=== PATIENT | female | born 1980 | race African-American/Black ===

== ENCOUNTER 2016-12-18 10:33 | Emergency (ER) | payer SELFPAY ==
[2016-12-18 11:02] VITALS: BP 151/99
[2016-12-18] MEDS ORDERED: Ibuprofen TAB* 200 MG PO ONE (12:13)
--- NOTE | 2016-12-18 12:21 | UC ---
Angelita Trejo Salem, scribed for Valeria Lincoln MD on 12/18/16 at 1211 . Shoulder Pain HPI - HPI Summary HPI Summary: Patient is a 36 y/o female who presents to the with right shoulder pain since 4 days ago. She states that she has an old injury from work that has worsened because of her work schedule / duties. 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 She began working 4 hours a day, but it has increased to 8 hours with 15 minute breaks. Pt states she has tightness along right trapezius. Pt get occasional paresthesia along right arm. Pt states these sx are same as she has previous had - pt states sx had improved with physical therapy, but is getting bad again. She denies taking medication previous prescribed because she gets sleepy with medication, but reports taking 200mg Ibuprofen 4-5 times, most recent one at 0200. She states that she has an appointment with her PCP 2 days from now. Pain is now localized in her right neck and the right side of her back. She is here with her mother and her niece, and pt is a mother herself. Pt is RHD. Pt is tearful because thought was ready to go back to work but is now in pain. Patients medication reviewed this visit. - History of Current Complaint Chief Complaint: UCUpperExtremity Stated Complaint: RT SHOLDER/NECK INJURY Time Seen by Provider: 12/18/16 11:20 Hx Obtained From: Patient, Family/Legal Librarian - Mother and niece. Hx Last Menstrual Period: 12/16/16 Onset/Duration: Gradual Onset, Lasting Days, Still Present Timing: Constant Severity Initially: Moderate Severity Currently: Moderate Location Of Pain: Radiates To - Right neck and right side of back. Aggravating Factor(s): Movement Alleviating Factor(s): Rest Associated Signs And Symptoms: Positive: Numbness/Tingling - in right neck/ shoulder area. - Allergies/Home Medications Allergies/Adverse Reactions: Allergies Allergy/AdvReac Type Severity Reaction Status Date / Time POWDER IN GLOVES Allergy Rash Uncoded 10/03/15 11:23 Home Medications: Home Medications Ibuprofen [Advil] 800 mg 12/18/16 [History] PMH/Surg Hx/FS Hx/Imm Hx Previously Healthy: Yes Endocrine History Of: Denies: Diabetes, Thyroid Disease Cardiovascular History Of: Denies: Cardiac Disorders, Hypertension, Pacemaker/ICD, Congestive Heart Failure Respiratory History Of: Denies: COPD, Asthma GI/ History Of: Denies: Ulcer - Surgical History Surgical History: Yes Surgery Procedure, Year, and Place: c-sections x2 - Family History Known Family History: Positive: Other - Arthritis - mother. - Social History Occupation: Employed Part-time Lives: With Family Alcohol Use: Rare Substance Use Type: None Smoking Status (MU): Never Smoked Tobacco Have You Smoked in the Last Year: No Review of Systems Constitutional: Negative Skin: Negative Eyes: Negative ENT: Negative Respiratory: Negative Cardiovascular: Negative Gastrointestinal: Negative Genitourinary: Negative Motor: Negative Neurovascular: Other - paresthesia right UE Musculoskeletal: Other: - right shoulder, neck pain Neurological: Numbness - in right neck/shoulder area. Psychological: Negative All Other Systems Reviewed And Are Negative: Yes Physical Exam Triage Information Reviewed: Yes Appearance: Well-Appearing, No Pain Distress, Well-Nourished Vital Signs: Initial Vital Signs Temp 98.7 F 12/18/16 10:53 Pulse 73 12/18/16 10:53 Resp 18 12/18/16 10:53 BP 151/99 12/18/16 10:53 Pulse Ox 100 12/18/16 10:53 Vital Signs Reviewed: Yes Eyes: Positive: Conjunctiva Clear ENT: Positive: Normal ENT inspection, Hearing grossly normal, Pharynx normal, TMs normal Neck exam: Normal Neck: Positive: No Lymphadenopathy, Tenderness @ - Tender right paracervical, right trapezius. Respiratory: Positive: Chest non-tender, Lungs clear Cardiovascular: Positive: RRR, No Murmur Musculoskeletal: Positive: Other: - Pt holding arm to body to splint right trapezius + TTP right paraspinal along trapezius to posterior shoulder - palpable spasm + flex/ext elbow, wrist 5/5 grasp + pronate/supinate Neurological Exam: Normal Neurological: Positive: Alert, Muscle Tone Normal, Other: - gross sensation throughout trapzius, UE 5/5 grasp, thumb up, finger cross, finger spread Psychological Exam: Normal Skin Exam: Normal Shoulder Course/Dx - Course Course Of Treatment: Blood pressure noted and patient advised to follow up with PCP 7-10 days. Pt with right trapezius spasm and pain - h/o similar. Exacerbated by work. Arm sling for rest and support. heat. stretch. motrin/ apap. flexeril. work note. PCP f/u 48 hours. reassurance - Differential Dx/Diagnosis Provider Diagnoses: muscle spasm Discharge - Discharge Plan Condition: Stable Disposition: HOME Prescriptions: Cyclobenzaprine TAB* [Flexeril 10 MG TAB*] 5 mg PO TID PRN #15 tab PRN Reason: Spasms Ibuprofen TAB* [Motrin TAB* 600 MG] 600 mg PO Q6H PRN #30 tab PRN Reason: Pain Patient Education Materials: Spasmodic Torticollis (ED), Muscle Spasm (ED) Forms: *Work Release Referrals: Tita Foy MD [Primary Care Provider] - Additional Instructions: - wear sling for comfort and support. It is VERY important you allow your arm to relax and let the sling hold the weight of your arm - Apply moist heat to your neck and shoulder area - 20 minutes a time - Once your muscles are warm, slow, gentle stretching exercises are important - Okay to alternate ibuprofen (motrin, advil) 600mg and tylenol 2 tablet every 3 hours for pain. Take with food. - Use muscle relaxant as prescribed. Do NOT drive, operate machinery or drink alcohol while taking flexeril - Keep you appointment as scheduled with your primary doctor this week. call your doctor with questions or concerns The documentation as recorded by the Angelita serna Salem accurately reflects the service I personally performed and the decisions made by me, Valeria Lincoln MD.
[2016-12-18] MEDS ORDERED: Ibuprofen TAB* 200 MG ONE (12:52)
== END 2016-12-18 12:58 | disposition home or self-care (01) ==
LOC: UCEAST 10:33
DX: M62.838 Other muscle spasm (principal)
CPT/HCPCS: 99212; A9270-GY; G0463

== ENCOUNTER 2018-03-15 09:11 | Emergency (ER) | payer OTHER ==
[2018-03-15 09:42] VITALS: BP 118/85
[2018-03-15] MEDS ORDERED: Ketorolac INJ* 60 MG/2 ML VIAL IM ONE (10:02)
--- NOTE | 2018-03-15 10:05 | UC ---
General HPI - HPI Summary HPI Summary: Risa Trejo, scribed for attending Stefan Barrera MD. Pt is a 37 y/o F who presents to [facility] c/o right tricep pain and spasm. Pt reports that for the last 3 days, her right tricep muscle becomes so hard it stiffens and hurts which is "stronger" than her typical muscle spasms. Pain radiates to the right side of the neck and down to the left lumbar back. Has tried taking Tylenol and Motrin which did not change symptoms. Associated pain is moderate, ranked 6/10 on triage. Additionally c/o increased urinary frequency and urgency for 4 days, unchanged by increased fluid intake and cranberry juice. Denies dysuria, hematuria, urine malodor and abdominal pain. PMHx nerve damage for over 4 years, for which she had a nerve conduction study in the past. 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 She has been experiencing right-sided numbness, pain, and intermittent muscle spasms for many years s/p clavicle fracture, though her current symptoms are acute and worse than baseline. Does not take any daily medications for nerve damage or muscle spasms. Right hand dominant. - History of Current Complaint Chief Complaint: UCUpperExtremity Stated Complaint: UPPER ARM/BACK PAIN Time Seen by Provider: 03/15/18 09:26 Hx Obtained From: Patient Hx Last Menstrual Period: 3 weeks ago Onset/Duration: Lasting Days - 3 days, Still Present Current Severity: Moderate Pain Intensity: 6 Pain Location at: Right tricep Pain Radiates to: Right side of neck and left lumbar back Character: Ache, spasm Aggravating: Nothing Alleviating: Nothing Associated Signs & Symptoms: Positive: Other - Muscle spasms - Allergy/Home Medications Allergies/Adverse Reactions: Allergies Allergy/AdvReac Type Severity Reaction Status Date / Time POWDER IN GLOVES Allergy Rash Uncoded 10/03/15 11:23 PMH/Surg Hx/FS Hx/Imm Hx - Additional Past Medical History Additional PMH: PMHx: Nerve damage Negative PMHx: HTN, DM, Asthma - Surgical History Surgical History: Yes Surgery Procedure, Year, and Place: c-sections x2 - Family History Known Family History: Positive: Other - Arthritis - mother. - Social History Alcohol Use: Rare Substance Use Type: None Smoking Status (MU): Never Smoked Tobacco Have You Smoked in the Last Year: No Review of Systems Constitutional: Negative Skin: Negative Eyes: Negative ENT: Negative Respiratory: Negative Cardiovascular: Negative Gastrointestinal: Negative Genitourinary: Frequency, Urgency Motor: Negative Neurovascular: Negative Musculoskeletal: Other: - Right tricep pain and spasm with radiation to right neck and left lumbar back Neurological: Negative Psychological: Negative All Other Systems Reviewed And Are Negative: Yes - Comments Additional Review of Systems Comments: NEGATIVE: Dysuria, hematuria, urine malodor and abdominal pain Physical Exam - Summary Physical Exam Summary: Appearance: Well-appearing, Well-nourished Skin: Warm Eyes: Normal ENT: Normal Neck: Supple, nontender Respiratory: Clear to auscultation Cardiovascular: Regular rate, regular rhythm. Normal S1, S2. Abdomen: Soft, nontender Musculoskeletal: Tenderness to palpation on the right middle head of the triceps that radiates to the right trapezius/upper shoulder and across to the left lumbar paraspinal muscle Neurological: Normal, A&Ox3 Psychiatric: Normal General: No acute distress Triage Information Reviewed: Yes Vital Signs: Initial Vital Signs Temp 98.6 F 03/15/18 09:31 Pulse 69 03/15/18 09:31 Resp 16 03/15/18 09:31 BP 118/85 03/15/18 09:31 Pulse Ox 100 03/15/18 09:31 Vital Signs Reviewed: Yes Course/Dx - Differential Dx - Multi-Symptom Provider Diagnoses: Right upper arm spasm, acute cystitis Discharge - Sign-Out/Discharge Documenting (check all that apply): Patient Departure - Discharge - Discharge Plan Condition: Stable Disposition: HOME Prescriptions: Nitrofurantoin Monohyd/M-Cryst [Macrobid 100 mg Capsule] 100 mg PO BID 7 Days # 14 cap Patient Education Materials: Urinary Tract Infection in Women (ED), Muscle Spasm (ED) Referrals: Tita Foy MD [Primary Care Provider] - - Billing Disposition and Condition Condition: STABLE Disposition: Home
--- NOTE | 2018-03-16 15:39 | UC ---
- Progress Note Progress Note: may stop antibiotic--no evidence of UTI urine culture is negative---follow with pcp, urgent care or ed if sx continue Discharge - Sign-Out/Discharge Documenting (check all that apply): Post-Discharge Follow Up - Discharge Plan Condition: Stable Disposition: HOME Prescriptions: Nitrofurantoin Monohyd/M-Cryst [Macrobid 100 mg Capsule] 100 mg PO BID 7 Days # 14 cap Patient Education Materials: Urinary Tract Infection in Women (ED), Muscle Spasm (ED) Referrals: Tita Foy MD [Primary Care Provider] - - Billing Disposition and Condition Condition: STABLE Disposition: Home
== END 2018-03-15 10:25 | disposition home or self-care (01) ==
LOC: UCEAST 09:11
DX: M62.838 Other muscle spasm (principal); N30.00 Acute cystitis without hematuria
CPT/HCPCS: 81003; 87086; 96372; 99212; G0463; J1885

== ENCOUNTER 2019-08-28 13:12 | Emergency (ER) | payer OTHER ==
[2019-08-28 13:44] VITALS: BP 103/64
--- NOTE | 2019-08-28 14:41 | UC ---
Dental HPI - HPI Summary HPI Summary: 38 yo female presents with two complaints: 1) She has upper teeth dentures and from time to time she will cut the inside of her gums and get infections. About 3 days ago she cut the left upper gums and since that time has had pain and swelling to the area and her left cheek. Has been taking ibuprofen for pain with good relief. 2) Right foot lump. Over the last 2-3 weeks she has noticed a small firm protruding bump at the top of her right foot. Has been tender. Yesterday area became soft and doesn't hurt anymore. Denies injury. - History of Current Complaint Chief Complaint: UCDentalProblem Stated Complaint: DENTAL,FOOT PAIN Time Seen by Provider: 08/28/19 14:41 Hx Obtained From: Patient Hx Last Menstrual Period: 3 weeks ago Onset/Duration: Gradual Onset Severity: Severe Pain Intensity: 10 Pain Scale Used: 0-10 Numeric - Allergies/Home Medications Allergies/Adverse Reactions: Allergies Allergy/AdvReac Type Severity Reaction Status Date / Time POWDER IN GLOVES Allergy Rash Uncoded 08/28/19 13:44 Home Medications: Home Medications Naproxen [Naproxen 500 mg tab] 500 mg PO 08/28/19 [History] PMH/Surg Hx/FS Hx/Imm Hx - Additional Past Medical History Additional PMH: Neuropathy - Surgical History Surgical History: Yes Surgery Procedure, Year, and Place: c-sections x2 - Family History Known Family History: Positive: Other - Arthritis - mother. - Social History Lives: With Family Alcohol Use: Rare Substance Use Type: None Smoking Status (MU): Never Smoked Tobacco Have You Smoked in the Last Year: No Review of Systems All Other Systems Reviewed And Are Negative: No Constitutional: Positive: Negative Skin: Positive: Negative Eyes: Positive: Negative ENT: Positive: Dental Pain Respiratory: Positive: Negative Cardiovascular: Positive: Negative Neurovascular: Positive: Negative Musculoskeletal: Positive: Other: - Right foot cyst Neurological: Positive: Negative Psychological: Positive: Negative Physical Exam - Summary Physical Exam Summary: GENERAL: NAD. WDWN. SKIN: No rashes, sores, lesions, or open wounds. HEENT: Head: AT/NC Nose: Nasal mucosa pink and moist. NTTP maxillary and frontal sinus. Throat: Posterior oropharynx without exudates, erythema, or tonsillar enlargement. Uvula midline. NECK: Supple. Nontender. No lymphadenopathy. CHEST: CTAB. No accessory muscle use. Breathing comfortably and in no distress. CV: RRR. Pulses intact. Cap refill <2seconds MSK: RIGHT FOOT: Dorsal foot at navicular with 7mm cyst. NTTP. No erythema or induration. NEURO: Alert. PSYCH: Age appropriate behavior. Triage Information Reviewed: Yes Vital Signs: Initial Vital Signs Temp 99.3 F 08/28/19 13:35 Pulse 84 08/28/19 13:35 Resp 18 08/28/19 13:35 BP 103/64 08/28/19 13:35 Pulse Ox 100 08/28/19 13:35 Vital Signs Reviewed: Yes Dental: Positive: Percussion Tenderness @ - Tooth #13, Cellulitis @ - Tooth # 13. Negative: Abscess @, Cervical Lymphadenopathy, Bleeding Dental Complaint Course/Dx - Course Course Of Treatment: Tooth #13 abscess/cellulitis. Suspect ganglion cyst of right foot. Advised to monitor the area and if does not resolve now that it is softer to be recheck by Ortho. - Differential Dx/Diagnosis Provider Diagnosis: Dental abscess, Ganglion cyst of foot Discharge ED - Sign-Out/Discharge Documenting (check all that apply): Patient Departure All imaging exams completed and their final reports reviewed: No Studies - Discharge Plan Condition: Stable Disposition: HOME Prescriptions: Clindamycin HCl 300 mg PO TID #21 capsule Patient Education Materials: Dental Abscess (ED), Ganglion Cysts (ED) Referrals: Tita Foy MD [Primary Care Provider] - Manuel Junior MD [Medical Doctor] - If Needed Additional Instructions: If you develop a fever, shortness of breath, chest pain, new or worsening symptoms - please call your PCP or go to the ED immediately. If the cyst on your right foot gets hard again or becomes more painful - I recommend that you see Orthopedics for further evaluation - Billing Disposition and Condition Condition: STABLE Disposition: Home
[2019-08-28] MEDS ORDERED: HYDROcodone/ACETAMIN 5-325 MG* 1 TAB PO ONE (15:15)
== END 2019-08-28 15:28 | disposition home or self-care (01) ==
LOC: UCEAST 13:12
DX: M67.471 Ganglion, right ankle and foot (principal); K04.7 Periapical abscess without sinus; G62.9 Polyneuropathy, unspecified; Z91.09 Other allergy status, other than to drugs and biological substances
CPT/HCPCS: 99212; G0463

== ENCOUNTER 2022-11-01 15:45 | Inpatient (IN) ==
[2022-11-01 16:29] LABS: ABS Eosinophils 0.2 10^3/ul (0-0.6); ABS Lymphocytes 1.5 10^3/ul (1.0-4.8); ABS Monocytes 0.7 10^3/ul (0-0.8); ABS Neutrophils 5.9 10^3/ul (1.5-7.7); Eosinophil % 2.4 %; Hematocrit 26 % (35-47); Mean Corpuscular HGB Conc 31 g/dL (31-36); Mean Corpuscular Hemoglobin 21 pg (27-31); Mean Corpuscular Volume 69 fL (80-97); Mean Platelet Volume 7.6 fL (7.4-10.4); Platelet Count 322 10^3/uL (150-450); Red Blood Count 3.76 10^6 /uL (3.70-4.87); Red Cell Distribution Width 18 % (10-15); White Blood Count 8.3 10^3/uL (3.5-10.8)
[2022-11-01 17:12] LABS: Albumin 3.9 g/dL (3.2-5.2); Albumin/Globulin Ratio 1.2 (1-3); Calcium 9.6 mg/dL (8.6-10.3); Creatinine, Serum 0.74 mg/dL (0.51-0.95); Globulin 3.2 g/dL (2-4); Potassium 4.2 mmol/L (3.5-5.0); Total Bilirubin 0.4 mg/dL (0.2-1.0); Total Protein 7.1 g/dL (6.4-8.9); eGFR CKD-EPI 103.5 (>60)
[2022-11-01] MEDS ORDERED: Iohexol 300 (CONTRAST) 10 ML SDV IV ONE (17:41)
[2022-11-01 17:44] LABS: High Sensitivity Troponin 1 Hr 27 pg/mL (<15)
[2022-11-01] MEDS ORDERED: Iohexol 350 (CONTRAST) 500 ML MDV IV ONE (17:44)
[2022-11-01] MEDS ORDERED: Heparin 5000 UNITS/ML 1 mL VIAL IV SCH (19:00)
[2022-11-01] MEDS ORDERED: oxyCODONE/Acetamin 5/325 mg TAB PO ONE (19:29)
[2022-11-01 19:33] LABS: ABS Basophils 0.1 10^3/ul (0-0.2); ABS Eosinophils 0.2 10^3/ul (0-0.6); ABS Lymphocytes 1.6 10^3/ul (1.0-4.8); ABS Monocytes 0.7 10^3/ul (0-0.8); ABS Neutrophils 6.4 10^3/ul (1.5-7.7); Eosinophil % 2.3 %; Hematocrit 25 % (35-47); Hemoglobin 7.6 g/dL (12.0-16.0); Lymphocyte % 18.3 %; Mean Corpuscular HGB Conc 31 g/dL (31-36); Mean Corpuscular Hemoglobin 21 pg (27-31); Mean Corpuscular Volume 69 fL (80-97); Mean Platelet Volume 7.8 fL (7.4-10.4); Platelet Count 310 10^3/uL (150-450); Red Blood Count 3.61 10^6 /uL (3.70-4.87); Red Cell Distribution Width 17 % (10-15); White Blood Count 8.9 10^3/uL (3.5-10.8)
[2022-11-01] MEDS: Heparin DRIP 25,000 UNITS BAG 25,000 UNITS/500 ML BAG IV SCH (19:41)
[2022-11-01 19:56] LABS: Creatinine, Serum 0.81 mg/dL (0.51-0.95); eGFR CKD-EPI 92.9 (>60)
[2022-11-02] MEDS: oxyCODONE/Acetamin 5/325 mg TAB PO PRN ×3 (00:14→09:38)
[2022-11-02 00:39] LABS: Hematocrit 26 % (35-47); Hemoglobin 7.8 g/dL (12.0-16.0); Mean Corpuscular HGB Conc 31 g/dL (31-36); Mean Corpuscular Hemoglobin 21 pg (27-31); Mean Corpuscular Volume 68 fL (80-97); Mean Platelet Volume 7.8 fL (7.4-10.4); Platelet Count 328 10^3/uL (150-450); Red Blood Count 3.75 10^6 /uL (3.70-4.87); Red Cell Distribution Width 17 % (10-15); White Blood Count 10.9 10^3/uL (3.5-10.8)
[2022-11-02 01:57] LABS: Ferritin 8.5 ng/mL (11-307)
[2022-11-02] MEDS ORDERED: Iron Sucrose 200 MG in NS 0.9% 100 ml BAG 100 ML IVPB ONE (04:30)
[2022-11-02 08:23] LABS: ABS Eosinophils 0.2 10^3/ul (0-0.6); ABS Lymphocytes 1.4 10^3/ul (1.0-4.8); ABS Monocytes 0.7 10^3/ul (0-0.8); ABS Neutrophils 7.1 10^3/ul (1.5-7.7); Hematocrit 24 % (35-47); Hemoglobin 7.6 g/dL (12.0-16.0); Lymphocyte % 14.9 %; Mean Corpuscular HGB Conc 31 g/dL (31-36); Mean Corpuscular Hemoglobin 22 pg (27-31); Mean Corpuscular Volume 69 fL (80-97); Mean Platelet Volume 7.5 fL (7.4-10.4); Platelet Count 325 10^3/uL (150-450); Red Blood Count 3.53 10^6 /uL (3.70-4.87); Red Cell Distribution Width 17 % (10-15); White Blood Count 9.4 10^3/uL (3.5-10.8)
[2022-11-02] MEDS ORDERED: Ondansetron 4 mg VIAL 2 MG/ML 2 ml VIAL IV PRN (09:17)
[2022-11-02] MEDS: Heparin DRIP 25,000 UNITS BAG 25,000 UNITS/500 ML BAG IV SCH (15:16)
[2022-11-03] MEDS: oxyCODONE/Acetamin 5/325 mg TAB PO PRN (03:35)
[2022-11-03 04:26] LABS: ABS Basophils 0.1 10^3/ul (0-0.2); ABS Eosinophils 0.2 10^3/ul (0-0.6); ABS Lymphocytes 1.3 10^3/ul (1.0-4.8); ABS Monocytes 0.5 10^3/ul (0-0.8); Eosinophil % 2.8 %; Hematocrit 25 % (35-47); Hemoglobin 7.7 g/dL (12.0-16.0); Lymphocyte % 18.3 %; Mean Corpuscular HGB Conc 30 g/dL (31-36); Mean Corpuscular Hemoglobin 21 pg (27-31); Mean Corpuscular Volume 68 fL (80-97); Mean Platelet Volume 7.6 fL (7.4-10.4); Nucleated Red Blood Cells % 0.1; Platelet Count 370 10^3/uL (150-450); Red Blood Count 3.73 10^6 /uL (3.70-4.87); Red Cell Distribution Width 17 % (10-15); White Blood Count 7.1 10^3/uL (3.5-10.8)
[2022-11-03 04:47] LABS: Calcium 9.5 mg/dL (8.6-10.3); Creatinine, Serum 0.77 mg/dL (0.51-0.95); Potassium 4.2 mmol/L (3.5-5.0); eGFR CKD-EPI 98.7 (>60)
[2022-11-03] MEDS: Iron Sucrose 200 MG in NS 0.9% 100 ml BAG 100 ML IVPB SCH (10:36)
[2022-11-03] MEDS: Heparin DRIP 25,000 UNITS BAG 25,000 UNITS/500 ML BAG IV SCH (13:14)
[2022-11-04] MEDS: oxyCODONE/Acetamin 5/325 mg TAB PO PRN (06:17)
[2022-11-04 07:24] LABS: ABS Eosinophils 0.3 10^3/ul (0-0.6); ABS Lymphocytes 1.7 10^3/ul (1.0-4.8); ABS Monocytes 0.5 10^3/ul (0-0.8); ABS Neutrophils 5.2 10^3/ul (1.5-7.7); Eosinophil % 3.3 %; Hematocrit 25 % (35-47); Hemoglobin 7.7 g/dL (12.0-16.0); Lymphocyte % 21.8 %; Mean Corpuscular HGB Conc 31 g/dL (31-36); Mean Corpuscular Hemoglobin 21 pg (27-31); Mean Corpuscular Volume 69 fL (80-97); Mean Platelet Volume 7.8 fL (7.4-10.4); Nucleated Red Blood Cells % 0.1; Platelet Count 382 10^3/uL (150-450); Red Blood Count 3.62 10^6 /uL (3.70-4.87); Red Cell Distribution Width 17 % (10-15); White Blood Count 7.7 10^3/uL (3.5-10.8)
[2022-11-04 07:36] LABS: Calcium 9.6 mg/dL (8.6-10.3); Creatinine, Serum 0.81 mg/dL (0.51-0.95); Potassium 4.3 mmol/L (3.5-5.0); eGFR CKD-EPI 92.9 (>60)
[2022-11-04] MEDS: Iron Sucrose 200 MG in NS 0.9% 100 ml BAG 100 ML IVPB SCH (11:55)
[2022-11-04] MEDS: Heparin DRIP 25,000 UNITS BAG 25,000 UNITS/500 ML BAG IV SCH (11:59)
[2022-11-05 06:35] LABS: Hematocrit 26 % (35-47); Mean Corpuscular HGB Conc 31 g/dL (31-36); Mean Corpuscular Hemoglobin 21 pg (27-31); Mean Corpuscular Volume 69 fL (80-97); Mean Platelet Volume 7.3 fL (7.4-10.4); Platelet Count 399 10^3/uL (150-450); Red Blood Count 3.79 10^6 /uL (3.70-4.87); Red Cell Distribution Width 17 % (10-15); White Blood Count 7.7 10^3/uL (3.5-10.8)
[2022-11-05 07:15] LABS: Creatinine, Serum 0.81 mg/dL (0.51-0.95); eGFR CKD-EPI 92.9 (>60)
[2022-11-05 07:55] LABS: ABS Eosinophils 0.2 10^3/ul (0-0.6); ABS Lymphocytes 1.4 10^3/ul (1.0-4.8); ABS Monocytes 0.5 10^3/ul (0-0.8); ABS Neutrophils 5.6 10^3/ul (1.5-7.7); Anisocytosis 2+; Eosinophil % 2.8 %; Nucleated Red Blood Cells % 0.4; Polychromasia 2+
[2022-11-05] MEDS: Iron Sucrose 200 MG in NS 0.9% 100 ml BAG 100 ML IVPB SCH (09:21)
[2022-11-05 10:17] VITALS: BP 113/64
[2022-11-05 12:14] LABS: DRVVT Screen Ratio 1.08 ratio (<1.20); LAC APTT 65 sec (25 - 37); LAC INR 1.2 (0.9-1.1); Prothrombin Time(LAC) 12.7 sec (9.4 - 12.5); Reptilase Time, P 18.3 sec; Thrombin Time (Bovine), P 218.4 sec
[2022-11-05 20:37] LABS: Phospholipid (Cardiolipin) IgA < 9.4 APL
[2022-11-06 16:12] LABS: Phospholipid Ab IgG < 9.4 GPL; Phospholipid Ab IgM, S 9.5 MPL
== END 2022-11-05 11:57 | disposition home or self-care (01) | DRG 134 ==
LOC: ED 15:45 → EDHOLD 21:29 → SUATTDRO 21:29 → MEDTELE 23:57
PROVIDERS: ADMIT Hospitalist; ATTEND Internal Medicine